=== PATIENT | male | born 1980 | race American Indian/Alaskan Native ===

== ENCOUNTER 2017-03-14 20:53 | Emergency (ER) | payer SELFPAY ==
[2017-03-15 01:13] LABS: Basophils % (Auto) 0.2 % (0.0-1.8); Eosinophils % (Auto) 2.5 % (0.0-4.3); Hematocrit 42.2 % (35.5-45.6); Hemoglobin 14.4 gm/dl (11.8-15.2); Mean Corpuscular HGB Conc 34 % (32-34); Mean Corpuscular Hemoglobin 31 pg (28-32); Mean Corpuscular Volume 90 fl (84-94); Platelet Count 263 K/mm3 (140-440); Red Blood Count 4.71 M/mm3 (3.65-5.03); Red Cell Distribution Width 13.3 % (13.2-15.2); White Blood Count 8.3 K/mm3 (4.5-11.0)
[2017-03-15 01:30] LABS: Anion Gap 15 mmol/L; BUN/Creatinine Ratio 12; Blood Urea Nitrogen 11 mg/dL (9-20); Calcium 8.9 mg/dL (8.4-10.2); Carbon Dioxide 26 mmol/L (22-30); Glucose 106 mg/dL (75-100); Potassium 4.1 mmol/L (3.6-5.0); Sodium 137 mmol/L (137-145)
[2017-03-15] MEDS ORDERED: BACTRIM DS PO ONE (07:19)
--- NOTE | 2017-03-15 07:24 | Emergency Department Report ---
- General Chief complaint: Wound/Laceration Stated complaint: RIGHT LEG WOUND Time Seen by Provider: 03/15/17 06:17 Source: patient Mode of arrival: Ambulatory Limitations: No Limitations - History of Present Illness Initial comments: 36-year-old male with no significant past medical history presents to the hospital complaints of a progressively worsening right anterior leg redness. Symptoms started in May after he accidentally cut his leg on a ladder. He developed erythema with rhinitis anterior lower leg. This has persisted and 2 months ago he developed a sore to the site. He accidentally bumped his anterior leg and developed dark discoloration and tenderness of the right anterior leg bone. No reports of fever. Patient visited [facility] ER was placed on clindamycin. Due to no improvement he returned and received a dose of IV antibiotics and was placed on Bactrim. Patient is taking Bactrim without improvement. Patient has not followed up with any primary care doctor or wound care due to lack of insurance. - Related Data Allergies Allergy/AdvReac Type Severity Reaction Status Date / Time No Known Allergies Allergy Unverified 03/15/17 00:25 Abscess Boil HPI - HPI Chief Complaint: Wound/Laceration Stated Complaint: RIGHT LEG WOUND Time Seen by Provider: 03/15/17 06:17 Allergies/Adverse Reactions: Allergies Allergy/AdvReac Type Severity Reaction Status Date / Time No Known Allergies Allergy Unverified 03/15/17 00:25 ED Review of Systems ROS: Stated complaint: RIGHT LEG WOUND Other details as noted in HPI Comment: All other systems reviewed and negative Other: Constitutional: No fevers chills Eyes: No eye pain visual changes ENT: No ear pain or throat pain Neck: Denies pain Respiratory: Denies cough wheezing shortness of breath Cardiovascular: Denies chest pain, palpitations, syncope GI: Denies abdominal pain, nausea, vomiting, diarrhea : Denies dysuria Musculoskeletal: As per HPI Skin: As per HPI Neurologic: Denies headache, numbness, weakness Psychiatric: Denies suicidal ideation, hallucinations ED Past Medical Hx - Surgical History Past Surgical History?: No - Social History Smoking Status: Never Smoker Substance Use Type: None ED Physical Exam - General Limitations: No Limitations - Other Other exam information: General: No limitations, patient is alert in no acute distress Head exam: Atraumatic, normocephalic Eyes exam: Normal appearance, ENT: Moist mucous membrane, normal oropharynx Neck exam: Normal inspection, full range of motion, no meningismus nontender Respiratory exam: Clear to auscultation bilateral, no wheezes, rales, crackles Cardiovascular: Normal rate and rhythm, normal heart sounds Abdomen: Soft, nondistended, and nontender, with normal bowel sounds, no rebound, or guarding Extremity: Full range of motion normal inspection no deformity Back: Normal Inspection, full range of motion, no tenderness Neurologic: Alert, oriented x3, cranial nerves intact, no motor or sensory deficit Psychiatric: normal affect, normal mood Skin: Lower leg anterior erythema on the large area with essentially a 7 x 11 area of black skin discoloration and tenderness. Mild warmth. No calf tenderness, 2+ DP pulse ED Course Vital Signs 03/14/17 03/15/17 03/15/17 22:44 04:26 04:30 Temperature 98.1 F 98.4 F Pulse Rate 87 Respiratory 19 18 Rate Blood Pressure 131/94 124/80 Blood Pressure 124/80 [Left] Blood Pressure [Right] O2 Sat by Pulse 79 L 94 Oximetry 03/15/17 03/15/17 03/15/17 04:46 05:00 05:16 Temperature Pulse Rate Respiratory Rate Blood Pressure 124/80 124/80 123/75 Blood Pressure [Left] Blood Pressure [Right] O2 Sat by Pulse 96 98 96 Oximetry 03/15/17 03/15/17 03/15/17 06:17 06:22 07:38 Temperature 98.6 F Pulse Rate 88 88 Respiratory 20 7 L 18 Rate Blood Pressure 123/75 Blood Pressure [Left] Blood Pressure 127/76 [Right] O2 Sat by Pulse 99 95 96 Oximetry 03/15/17 09:56 Temperature 98.4 F Pulse Rate 86 Respiratory 16 Rate Blood Pressure Blood Pressure [Left] Blood Pressure 117/58 [Right] O2 Sat by Pulse 96 Oximetry - Reevaluation(s) Reevaluation #1: 03/15/17 10:59 Patient received a dose of IV vancomycin in the ED. - Consultations Consultation #2: 03/15/17 11:04 Wound care nurse was nice enough to come to the ED to evaluate patient wound. She placed hydrogel and dressing to his skin lesion to help remove necrotic tissue. We were able to give patient several supplies including a bottle of hydrogel to continue dislocated treatment at home. Patient and family member were educated about how to perform wound care. ED Medical Decision Making - Lab Data Result diagrams: 03/15/17 00:52 03/15/17 00:52 Lab Results 03/15/17 03/15/17 Range/Units 00:52 00:52 WBC 8.3 (4.5-11.0) K/mm3 RBC 4.71 (3.65-5.03) M/mm3 Hgb 14.4 (11.8-15.2) gm/dl Hct 42.2 (35.5-45.6) % MCV 90 (84-94) fl MCH 31 (28-32) pg MCHC 34 (32-34) % RDW 13.3 (13.2-15.2) % Plt Count 263 (140-440) K/mm3 Lymph % (Auto) 34.6 (13.4-35.0) % Wayne % (Auto) 8.2 H (0.0-7.3) % Eos % (Auto) 2.5 (0.0-4.3) % Baso % (Auto) 0.2 (0.0-1.8) % Lymph # 2.9 (1.2-5.4) K/mm3 Wayne # 0.7 (0.0-0.8) K/mm3 Eos # 0.2 (0.0-0.4) K/mm3 Baso # 0.0 (0.0-0.1) K/mm3 Seg Neutrophils % 54.5 (40.0-70.0) % Seg Neutrophils # 4.5 (1.8-7.7) K/mm3 Sodium 137 (137-145) mmol/L Potassium 4.1 (3.6-5.0) mmol/L Chloride 100.0 (98-107) mmol/L Carbon Dioxide 26 (22-30) mmol/L Anion Gap 15 mmol/L BUN 11 (9-20) mg/dL Creatinine 0.9 (0.8-1.5) mg/dL Estimated GFR > 60 ml/min BUN/Creatinine Ratio 12 % Glucose 106 H (75-100) mg/dL Calcium 8.9 (8.4-10.2) mg/dL - Medical Decision Making No signs of DVT. No signs of sepsis. Pain is chronic with acute necrosis. Stressed importance of extended wound care. Initiated 1 care in the ED with education. Pt also provided several supplies - Differential Diagnosis cellulitis, DVT, venous stasis dermatitis Critical Care Time: No Critical care attestation.: If time is entered above; I have spent that time in minutes in the direct care of this critically ill patient, excluding procedure time. ED Disposition Clinical Impression: Cellulitis of leg, right, Skin necrosis Disposition: TO HOME OR SELFCARE Is pt being admited?: No Does the pt Need Aspirin: No Condition: Stable Instructions: Cellulitis (ED), Chronic Wound Care (ED) Additional Instructions: It is very important that you follow with a primary care doctor (or primary clinic provided), and wound care clinic for continued treatment of your leg infection. Continue current antibiotics until completion. Return if symptoms worsen as indicated by a discharge instructions Referrals: SAMIR CASTANEDA MD [Primary Care Provider] - 3-5 Days [facility] [Provider Group] - 3-5 Days [facility] [Outside] - 3-5 Days Time of Disposition: 11:16
[2017-03-15] MEDS ORDERED: VANCOMYCIN/NS 1 GM/250 ML 1 GM/250 ML BAG IV ONE (08:00)
[2017-03-15 11:36] VITALS: BP 127/74
--- NOTE | 2017-03-18 11:51 | Vascular Lab Report ---
Right Lower Extremity Venous Duplex Study: Reason for Exam: Pain and swelling of the right lower extremity, leg infection. Comments on the Right: All veins visualized are freely compressible without evidence of internal echogenicity. Flow is spontaneous and phasic throughout. No evidence of acute or chronic thrombus is seen in any of the vessels visualized. Comments on the Left: A limited duplex study was done of the proximal veins of the left lower extremity. All veins visualized are freely compressible without evidence of internal echogenicity. Flow is spontaneous and phasic throughout. No evidence of acute or chronic thrombus is seen in any of the vessels visualized. Impression: No evidence of acute or chronic deep venous thrombosis in the right lower extremity.
== END 2017-03-15 11:35 | disposition home or self-care (01) ==
LOC: ED 20:53
DX: L03.115 Cellulitis of right lower limb (principal); I96 Gangrene, not elsewhere classified
CPT/HCPCS: 36415; 80048; 85025; 93971; 96365; 96366; 99284; J3370